=== PATIENT | male | born 1945 | race Caucasian/White ===

== ENCOUNTER 2020-02-10 06:24 | Day surgery (SDC) | payer MEDICARE, OTHER, SELFPAY ==
[2020-02-04 11:16] VITALS: BMI 33.1
[2020-02-10 07:00] VITALS: BP 113/82; PULSE 84; RESP 16; TEMP 36.1; O2SAT 96
--- NOTE | 2020-02-10 07:30 | P.CONAN_ITS ---
[facility] [place] Past Medical History Medical History Hyperlipidemia Hypothyroidism Surgical History Surgical History History of esophagogastroduodenoscopy (EGD) History of repair of pyloric stenosis Hx of colonoscopy Social History Social History Smoking Status: Unknown if ever smoked Use of substances other than those prescribed or required for medical reasons: No Advance Directives: No Advance Directives Information Provided: No Advance Directives on File: No Meds Allergies Allergy/AdvReac Type Severity Reaction Status Date / Time No Known Allergies Allergy Verified 02/10/20 06:58 Home Medications Medication Instructions Recorded Confirmed Type calcium carbonate-vitamin D3 1 tab PO BID 02/04/20 02/04/20 History [Calcium 600 + D(3)] levothyroxine 112 mcg PO DAILY 02/04/20 02/04/20 History omeprazole 20 mg PO DAILY 02/04/20 02/04/20 History simvastatin 40 mg PO BEDTIME 02/04/20 02/10/20 History Exam Exam Date and Time: February 10, 2020 0730 Height,Weight and Vital Signs: Height 5 ft 10 in Weight 104.78 kg Last Vital Signs Temp 96.9 F 02/10/20 07:00 Pulse 84 02/10/20 07:00 Resp 16 02/10/20 07:00 BP 113/82 02/10/20 07:00 Pulse Ox 96 02/10/20 07:00 Airway Mallampati Class: II TM Dist: >3cm Neck ROM: Full Loose/Missing/Broken Teeth: No Heart: [id number] Lungs: cta b/l Assessment and Plan Assessment Anesthesia Assessment: Anesthesia Plan Discussed, PAT Visit and Chart Reviewed Final Anesthetic Review NPO: Yes ASA Class: II Final Preanesthetic Review: No Changes in Pt Med Stat, Meds/Allgs Chart Reviewed, Consent Obtained/Reviewed and Anes Risks/Benef Reviewed Patient Risk: Low Procedure Risk: Low Assessment/Block/Sedation in SS: Assess/Block/Sedation-SS Anesthetic Plan Anesthetic Plan: MAC: Disposition: Standard PACU
[2020-02-10] MEDS: Lactated Ringers 1,000 ML 50 ML IVCONT (07:32)
[2020-02-10 08:36] VITALS: BP 90/43; PULSE 74; RESP 12; TEMP 36.2; O2SAT 98
--- NOTE | 2020-02-10 08:39 | PM.OP ---
Brief Operative Note Date of Service: 02/10/20 Pre-op diagnosis: Miranda's, Screening Post-op diagnosis: other (Small hiatal hernia, colon polyps) Procedure: EGD with biopsy, Colonoscopy to cecum and TI with biopsy and removal of polyps Surgeon: Austin Rcihmond Anesthesia: MAC Estimated blood loss (mL): 2.0 Pathology: other (A. EG Junction at 38cm B. Cecal polyps) Condition: stable Disposition: PACU
--- NOTE | 2020-02-10 08:46 | HO.POSTANES ---
Post Anesthesia Evaluation Post Anesthesia Evaluation Vital Signs: Vital Signs Temp Pulse Resp BP Pulse Ox 02/10/20 08:36 97.2 F 74 12 90/43 L 98 02/10/20 07:00 96.9 F 84 16 113/82 96 Anesthesia: Monitored Mental Status: Awake Pain Control: Satisfactory Nausea/Vomiting: None Hydration: Adequate Anesthesia-Related Issues: No Anes. Related Issues
[2020-02-10 08:51] VITALS: BP 91/54; PULSE 69; RESP 16; O2SAT 96
--- NOTE | 2020-02-10 08:58 | OP_ITS ---
SURGEON: Austin Richmond MD INDICATIONS: The patient presents for evaluation of chronic gastroesophageal reflux, Miranda's esophagus, personal history of tubular adenoma of the colon, and colorectal cancer screening. Full consent has been obtained from him for both procedures, including risks of bleeding and perforation. PREOPERATIVE DIAGNOSIS: POSTOPERATIVE DIAGNOSIS: PROCEDURE PERFORMED: Esophagogastroduodenoscopy with biopsies, and colonoscopy to the cecum and terminal ileum with biopsy and removal of polyps. ESTIMATED BLOOD LOSS: COMPLICATIONS: ANESTHESIA: Monitored anesthesia care. ASSISTANTS: SPECIMENS: PREOPERATIVE DIAGNOSES: Gastroesophageal reflux, Miranda's esophagus, history of tubular adenoma of the colon, colorectal cancer screening. POSTOPERATIVE DIAGNOSES: Gastroesophageal reflux, Miranda's esophagus, history of tubular adenoma of the colon, colorectal cancer screening, small hiatal hernia, small colon polyps, diverticulosis and internal hemorrhoids. DESCRIPTION OF PROCEDURE: The patient was placed in the left lateral decubitus position. The Olympus video gastroscope was passed in the posterior oropharynx and upper esophagus under direct vision. The scope was passed slowly into the distal esophagus. The gastroesophageal junction was visualized at 38 cm. There was a very minimal irregularity consistent with possible tiny area of Miranda's mucosa, but no evidence of any esophagitis nor any lesions. The scope was entered into the stomach. There was a small hiatal hernia. The scope was advanced to pylorus and duodenum cannulated the descending portion. The duodenum including the bulb appeared normal without mass or ulceration. The scope was withdrawn back into the stomach. The gastric antrum and body appeared normal with good peristalsis. The scope was retroflexed visualizing the proximal stomach carefully which appeared normal, without any sign of mass or ulceration. The scope was straightened out and withdrawn back into the esophagus. Biopsies were obtained at the EG junction at 38 cm. Proximal to this, the esophageal mucosa appeared normal. The scope was withdrawn from the patient. He was turned around for colonoscopy. The digital rectal exam revealed no abnormalities. The Olympus video pediatric colonoscope was entered into the rectum and advanced easily to the cecum. Once in the cecum, I did identify normal-appearing cecal pouch other than two 3 mm polyps in the cecum, which were each biopsied and completely removed with cold biopsy forceps. The terminal ileum was cannulated and appeared normal. The scope was withdrawn back in the colon. The ileocecal valve appeared normal. The remainder of the cecum appeared normal. The scope was slowly withdrawn assessing all mucosal surfaces carefully. Preparation was excellent. I did not visualize any other polyps, colitis, nor angiodysplasia. There was a mild amount of sigmoid diverticulosis. In the rectum, scope was retroflexed visualizing internal hemorrhoids, but no other pathology. The rectal mucosa appeared normal. Scope was straightened out and withdrawn from the patient. He tolerated the procedure well and was returned to the recovery area in stable condition. IMPRESSION: 1. Small colon polyps, status post biopsy and removal. 2. Diverticulosis. 3. Internal hemorrhoids. 4. Small hiatal hernia. 5. History of Miranda's esophagus. PLAN: The results of the biopsy will be checked. Given the minimal findings on the upper endoscopy and his age, I do not think he will need any further upper endoscopies. He will continue his omeprazole for symptomatic relief of reflux. I would recommend a repeat colonoscopy for further surveillance in 5 years depending upon his clinical status at that point. He will otherwise see me on a p.r.n. basis. MD CARO Najera/ROHITH / [phone]
[2020-02-10 09:01] VITALS: BP 104/78; PULSE 71; RESP 16; TEMP 36.2; O2SAT 95
== END 2020-02-10 09:40 | disposition home or self-care (01) ==
PROVIDERS: PCP Internal Medicine; Visit Provider Internal Medicine
PROC: (CPT 45380; principal; 2020-02-10 07:30)
DX: Z12.11 Encounter for screening for malignant neoplasm of colon (principal); Z86.010 Personal history of colon polyps; D12.0 Benign neoplasm of cecum; K57.30 Diverticulosis of large intestine without perforation or abscess without bleeding; K64.8 Other hemorrhoids; K22.70 Barrett's esophagus without dysplasia; K21.00 Gastro-esophageal reflux disease with esophagitis, without bleeding; K44.9 Diaphragmatic hernia without obstruction or gangrene; E78.5 Hyperlipidemia, unspecified; Z79.899 Other long term (current) drug therapy
CPT/HCPCS: 45380; 43239; 88305; J2370

== ENCOUNTER 2020-08-31 03:32 | Emergency (ER) | payer MEDICARE, OTHER, SELFPAY ==
[2020-08-31 04:36] VITALS: BP 154/94; PULSE 80; RESP 18; TEMP 37.1; O2SAT 96; BMI 34.5
--- NOTE | 2020-08-31 05:40 | ED_ITS ---
HPI - General Adult General Chief complaint: Upper Respiratory Symptoms Stated complaint: Congested Time Seen by Provider: 08/31/20 05:38 Source: patient Mode of arrival: ambulatory History of Present Illness HPI narrative: This is a 74-year-old male who comes in with worsening sneezing, runny nose, nasal congestion for 2 days. He denies attempting to use any useo-fnb-srivmfm Benadryl, Claritin and states that he became anxious because he could not breathe through his nose. Otherwise, he denies any sick contacts, fevers, chills, shortness of breath, chest pain/palpitations. Related Data Home Medications Medication Instructions Recorded Confirmed calcium carbonate-vitamin D3 1 tab PO BID 02/04/20 02/04/20 [Calcium 600 + D(3)] levothyroxine 112 mcg PO DAILY 02/04/20 02/04/20 omeprazole 20 mg PO DAILY 02/04/20 02/04/20 simvastatin 40 mg PO BEDTIME 02/04/20 02/10/20 Allergies Allergy/AdvReac Type Severity Reaction Status Date / Time No Known Allergies Allergy Verified 02/10/20 06:58 Review of Systems Review of Systems: Written positives and negatives as stated in HPI 10 point review of systems is otherwise negative. [facility] Past Medical History Source: nursing notes reviewed Medical History Hyperlipidemia Hypothyroidism Surgical History History of esophagogastroduodenoscopy (EGD) History of repair of pyloric stenosis Hx of colonoscopy Social History Social History Advance Directives: No Advance Directives Information Provided: No Physical Exam Vital Signs: Vital Signs: Last Vital Signs Temp 98.8 F 08/31/20 04:36 Pulse 80 08/31/20 04:36 Resp 18 08/31/20 04:36 BP 154/94 H 08/31/20 04:36 Pulse Ox 96 08/31/20 04:36 Body Mass Index 34.5 VITAL SIGNS: Reviewed. GENERAL: Well developed, well nourished, in no acute distress. HEAD: Normocephalic/atraumatic EYES: PERRLA, EOMI, clear watery from bilateral eyes EARS: Ext canals without abnormality, TMs non-bulging and non-erythematous NOSE: Boggy turbinates bilaterally, right greater than left OROPHARYNX: no oral lesions noted, posterior pharynx clear, there is cobblestoning noted NECK: Supple, no adenopathy LUNGS: Normal breath sounds. No adventitious sounds or accessory muscle use. SpO2<96> CARDIOVASCULAR: Regular rate and rhythm without noted murmurs ABDOMEN: Soft, non-tender, non-distended with bowel sounds. NEUROLOGIC: Alert and oriented x 4. Course Course Course Narrative: This is a 74-year-old male with history and clinical prese ntation consistent with seasonal allergies with classic allergic rhinitis and cobblestoning in the posterior pharynx. On review of COVID-19 testing it is negative and patient was provided with initial dose of Benadryl and discharged home in stable condition with instructions to use ochq-jnk-sqzjzuh Claritin and Flonase for control over his seasonal allergies as these are non drowsy formulations. Medical Decision Making Lab Data Labs: Lab Results 08/31/20 Range/Units 05:36 COVID-19 (ADAMARIS) Negative (Negative) COVID-19 Clin Com See Note Discharge Plan Discharge Clinical Impression: Acute seasonal allergic rhinitis Patient Disposition: Home, Self-Care Instructions: Allergic Rhinitis (ED), Loratadine (By mouth), Fluticasone (Into the nose) Additional Instructions: Resume all home medications as prescribed. Recommend starting Claritin (loratadine) in conjunction with Flonase for control over your seasonal allergies and nasal congestion. Both of these medications are available cplu-[id number]. Follow-up with your primary care provider in the next 1-2 days for re- evaluation. Return to the ER for any worsening of your symptoms. Prescriptions: No Action simvastatin 40 mg Tablet 40 mg PO BEDTIME RF: 0 omeprazole 20 mg Capsule,Delayed Release(Dr/Ec) 20 mg PO DAILY RF: 0 levothyroxine 112 mcg Tablet 112 mcg PO DAILY RF: 0 calcium carbonate-vitamin D3 [Calcium 600 + D(3)] 600 mg(1,500mg) -400 unit Tablet 1 tab PO BID RF: 0
[2020-08-31] MEDS: diphenhydrAMINE HCL 25 MG TABLET PO (05:55)
[2020-08-31 05:57] LABS: COVID-19 Test Negative (Negative)
== END 2020-08-31 06:13 | disposition home or self-care (01) ==
PROVIDERS: Emergency Provider Student in an Organized Health Care Education/Training Program; PCP Internal Medicine
DX: J30.2 Other seasonal allergic rhinitis (principal); Z20.822 Contact with and (suspected) exposure to COVID-19
CPT/HCPCS: 36415; 87635; 99283; Q0163

== ENCOUNTER 2023-08-28 15:59 | Outpatient (AMB) | payer MEDICARE, OTHER, SELFPAY ==
[2023-08-28 16:08] VITALS: BP 140/80; PULSE 76; TEMP 36.8; O2SAT 98; BMI 34.3
--- NOTE | 2023-08-28 16:08 | AM.OFFWIN_ITS ---
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 patient states he thinks he had tdap about [address] 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 While working in the shed, a screw pierced thru the skin of his right hand. Minimal bleeding. PFSH Medical History Hyperlipidemia Hypothyroidism Surgical History History of esophagogastroduodenoscopy (EGD) History of repair of pyloric stenosis Hx of colonoscopy Social History Patient Tobacco Use Status: Never used Tobacco Physical Exam Vital Signs: Last Vital Signs Temp 98.3 F 08/28/23 16:08 Pulse 76 08/28/23 16:08 BP 140/80 H 08/28/23 16:08 Pulse Ox 98 08/28/23 16:08 Oxygen Delivery Method Room Air 08/28/23 16:08 BMI result Body Mass Index 34.3 Extrem Other: Hand: puncture wound in the center of the hand. Surrounding area is mildly tender, No discharge Assessment & Plan Assessment & Plan (1) Puncture wound of hand, right: Code(s): S61.431A - Puncture wound without foreign body of right hand, initial encounter Plan: Wound was cleaned with betadine and peroxide. He is uptodate on tetanus immunization. Cephalexin and meloxicam called in. Keep hand elevated. Medications: New cephalexin 500 mg PO BID 14 caps 0RF meloxicam 15 mg PO DAILY 14 tabs 0RF Coding Level of Care Code New Pt Level 3 (07651) Diagnoses Puncture wound of hand, right S06.298D
== END 2023-08-28 16:34 | disposition home or self-care (01) ==
PROVIDERS: PCP Internal Medicine; Visit Provider Internal Medicine
DX: S61.431A Puncture wound without foreign body of right hand, initial encounter (principal)
CPT/HCPCS: 99203

== ENCOUNTER 2023-09-14 08:51 | Outpatient (AMB) | payer MEDICARE, OTHER, SELFPAY ==
[2023-09-14 09:19] VITALS: BP 118/78; PULSE 73; TEMP 36.1; O2SAT 99; BMI 34.4
--- NOTE | 2023-09-14 09:19 | AM.OFFWIN_ITS ---
Intake Vital Signs 09/14/23 09:19 Height 5 ft 9 in Weight 233 lb BMI 34.4 BP 118/78 Blood Pressure Location Lt brachial Position Sitting Pulse 73 Pulse Source Pulse Oximeter Temp 97.0 F Temp Source Temporal Artery Scan Pulse Oximetry (%) 99 Oxygen Delivery Method Room Air Intake Visit Reasons: EP ? FB in left eye Intake Note: pt is here today for lft eye red started yesterday Patient Tobacco Use Status: Never used Tobacco Allergies No Known Allergies Allergy (Verified 09/14/23 09:26) Do you need a note to return to daycare/school/sports/work: No HPI HPI Comments History of Present Illness Details Patient is a 77-year-old male who states he went to the eye doctor yesterday and then when he got home last night, he was just sitting inside of his house when it felt like something went into his eye and has been irritating it ever since. He tried to wash it out but it has not working. He did not see anything fly into his eye. He does not have any visual changes but states it is irritating. PFSH Medical History Hyperlipidemia Hypothyroidism Surgical History History of esophagogastroduodenoscopy (EGD) History of repair of pyloric stenosis Hx of colonoscopy Social History Patient Tobacco Use Status: Never used Tobacco Review of Systems Const All systems reviewed & are unremarkable except as noted in HPI and below Physical Exam Vital Signs: Last Vital Signs Temp 97.0 F 09/14/23 09:19 Pulse 73 09/14/23 09:19 BP 118/78 09/14/23 09:19 Pulse Ox 99 09/14/23 09:19 Oxygen Delivery Method Room Air 09/14/23 09:19 BMI result Body Mass Index 34.4 Const General: cooperative, healthy appearing, comfortable, no acute distress and well developed Orientation/consciousness: patient oriented x3 Limitations: no limitations HEENT Head: Yes normal to inspection Ears: external ears normal General nose exam: Normal external nose present Face and sinus: Yes normal facial exam Eyes Eyelids: Yes eyelid abnormality (hordeolum at 10'oclock up internal upper left eyelid) Conjunctivae: conjunctival abnormal left conjunctival injection diffuse Corneas: fluorescein used (Corneal abrasion noted across pupil of left eye from 3o'clock to 9 o'clock) Pupils: Equal, round and reactive pupils present EOM: EOMs intact bilaterally Resp Effort & Inspection: normal respiratory effort and able to speak in complete sentences Neuro General: patient oriented x3 Cranial nerves: Yes Equal, round and reactive pupils present Office Procedures Fluorescein eye exam Details: numbed left eye with 2 tetracaine drops, applied dye and examined under fluorescein light, corneal abrasion of left eye noted, from the 3 o'clock position to the 9 o'clock position Assessment & Plan Assessment & Plan (1) Corneal abrasion, left: Code(s): S05.02XA - Injury of conjunctiva and corneal abrasion without foreign body, left eye, initial encounter Qualifiers: Encounter type: initial encounter Qualified Code(s): S05.02XA - Injury of conjunctiva and corneal abrasion without foreign body, left eye, initial encounter Plan: After numbing the eye and using the fluorescein, we flushed the eye thoroughly at the eye wash station. Follow-up with her bar host/hostess as scheduled this afternoon, we will send erythromycin to pharmacy Plan see above Medications: New erythromycin Apply 1cm ribbon to inner lower left eyelid 0.5 inches ophthalmic (eye) QID 3.5 grams 0RF Coding Level of Care Code Est Pt Level 4 (17807) Diagnoses Abrasion of left cornea, initial encounter S05.02XA Encounter type: initial encounter
== END 2023-09-14 10:09 | disposition home or self-care (01) ==
PROVIDERS: PCP Internal Medicine; Visit Provider Physician Assistant
DX: S05.02XA Injury of conjunctiva and corneal abrasion without foreign body, left eye, initial encounter (principal)
CPT/HCPCS: 99214

== ENCOUNTER 2023-10-12 10:34 | Outpatient (AMB) | payer MEDICARE, OTHER, SELFPAY ==
--- NOTE | 2023-10-12 10:41 | AM.OFFWIN_ITS ---
Intake Vital Signs 10/12/23 10:42 Height 5 ft 9 in Weight 231 lb BMI 34.1 BP 132/84 Blood Pressure Location Lt brachial Position Sitting Pulse 65 Pulse Source Pulse Oximeter Temp 97.6 F Temp Source Oral Pulse Oximetry (%) 97 Oxygen Delivery Method Room Air Intake Visit Reasons: EP, RT ear infection Intake Note: pt here c/o RT ear pain. Started 3-4 weeks ago. ? infection Patient Tobacco Use Status: Never used Tobacco Allergies No Known Allergies Allergy (Verified 10/12/23 10:42) Do you need a note to return to daycare/school/sports/work: No HPI EP, RT ear infection HPI Details This note is constructed using voice recognition software. While every effort has been made to ensure accuracy, pastoral worker errors may have been included. The patient is a 78 year old male who presents to the clinic today with 3-4 weeks of right-sided ear pain. He notes that since this has started he has had significant loss in hearing, approximately 80% compared to his normal. He does not wear hearing aids. He does use Q-tips regularly to clean his ears, and has noted that he has been getting a yellow discharge from his ear. No fever or chills. PFSH Medical History Hyperlipidemia Hypothyroidism Surgical History History of esophagogastroduodenoscopy (EGD) History of repair of pyloric stenosis Hx of colonoscopy Social History Patient Tobacco Use Status: Never used Tobacco Review of Systems Const All systems reviewed & are unremarkable except as noted in HPI and below Physical Exam Vital Signs: Last Vital Signs Temp 97.6 F 10/12/23 10:42 Pulse 65 10/12/23 10:42 BP 132/84 10/12/23 10:42 Pulse Ox 97 10/12/23 10:42 Oxygen Delivery Method Room Air 10/12/23 10:42 BMI result Body Mass Index 34.1 Const General: cooperative, healthy appearing, comfortable, no acute distress and aler t Orientation/consciousness: patient oriented x3 Limitations: no limitations HEENT Head: Yes normal to inspection and Yes normocephalic Ears: TM normal on the left and TM abnormal erythematous on the right and perforated with purulent discharge (in canal) General nose exam: Normal external nose present Face and sinus: Yes normal facial exam and Yes sinuses nontender Mouth: Normal oral and palatal mucosa present and tongue normal Teeth and gingiva: dentition normal Throat: Yes posterior oropharynx normal Eyes General: appearance normal, both eyes and all related structures Skin General skin exam: no rashes or lesions noted, elasticity normal and turgor n ormal Neuro General: patient oriented x3 Psych Appearance: grossly normal Mental Status: mental status grossly normal Speech and movement: Normal speech and movement present Affect: normal affect Assessment & Plan Assessment & Plan (1) Acute otitis media of right ear with perforation: Code(s): H66.91 - Otitis media, unspecified, right ear; H72.91 - Unspecified perforation of tympanic membrane, right ear Plan: Antimicrobial therapy prescribed. Advised taking until completed. Advised avoidance of use of Q-tips in the ear. Advised avoidance of water in the ear canal, including use of cotton ball when showering. Reviewed timeline until hearing should return typically 3-4 weeks. Advised follow up with PCP with failure for hearing to resolve. Plan See above for full details and plan. Medications: New amoxicillin-pot clavulanate 875-125 mg 1 tab PO BID 10 days 20 tabs 0RF Coding Level of Care Code Est Pt Level 3 (39424) Diagnoses Acute otitis media of right ear with perforation H66.91; H72.91
[2023-10-12 10:42] VITALS: BP 132/84; PULSE 65; TEMP 36.4; O2SAT 97; BMI 34.1
== END 2023-10-12 12:02 | disposition home or self-care (01) ==
PROVIDERS: PCP Internal Medicine; Visit Provider Registered Nurse
DX: H66.91 Otitis media, unspecified, right ear (principal); H72.91 Unspecified perforation of tympanic membrane, right ear
CPT/HCPCS: 99213

== ENCOUNTER 2023-11-21 10:13 | Outpatient (AMB) | payer MEDICARE, OTHER, SELFPAY ==
--- NOTE | 2023-11-21 10:13 | MHC.OFFWIV ---
Intake Vital Signs 11/21/23 10:15 Height 5 ft 9 in Weight 232 lb BMI 34.3 BP 140/80 H Blood Pressure Location Lt brachial Position Sitting Pulse 82 Pulse Source Pulse Oximeter Pulse Oximetry (%) 94 Oxygen Delivery Method Room Air Intake Visit Reasons: EP Right ear still bothering him Intake Note: Patient here for right ear still bothersome, he scheduled an appt for first week of nov and then was cancelled and advised to come here. Patient Tobacco Use Status: Never used Tobacco Allergies No Known Allergies Allergy (Verified 11/21/23 10:19) Do you need a note to return to daycare/school/sports/work: No HPI HPI Comments History of Present Illness Details Patient is a 78-year-old male who was seen in this clinic on October 11, diagnosed with a right ear infection, given Augmentin which he took in fall but he is now stating that helped improve his hearing loss about 60% but he still has some residual hearing loss. he statees when he takes his finger and rubs it on his outer ear, it actually improves his hearing. He states he does not really have pain, he has more of an uncomfortableness. He denies any fevers. He does state he has some malodorous discharge from the ear at times. PFSH Medical History Hyperlipidemia Hypothyroidism Surgical History History of esophagogastroduodenoscopy (EGD) History of repair of pyloric stenosis Hx of colonoscopy Social History Patient Tobacco Use Status: Never used Tobacco Review of Systems Const All systems reviewed & are unremarkable except as noted in HPI and below Physical Exam Vital Signs: Last Vital Signs Pulse 82 11/21/23 10:15 BP 140/80 H 11/21/23 10:15 Pulse Ox 94 11/21/23 10:15 Oxygen Delivery Method Room Air 11/21/23 10:15 BMI result Body Mass Index 34.3 Const General: cooperative, healthy appearing, comfortable and no acute distress Orientation/consciousness: patient oriented x3 HEENT Head: Yes normal to inspection, Yes No palpable skull fracture present and Yes normocephalic Ears: hearing grossly normal bilaterally, external ears normal, TM's normal bilaterally, mastoids normal (no TTP) bilaterally, Abnormal EAC present (right side) erythema and edema, hearing grossly impaired and no periauricular adenopathy General nose exam: Normal external nose present Face and sinus: Yes normal facial exam Mouth: Normal oral and palatal mucosa present Teeth and gingiva: dentition normal Throat: Yes posterior oropharynx normal Eyes General: appearance normal, both eyes and all related structures Neck Neck: Yes normal visual inspection, Yes full ROM, Yes no lymphadenopathy, Yes no meningeal signs, Yes trachea midline and Yes supple Resp Effort & Inspection: normal respiratory effort and able to speak in complete sentences Skin General skin exam: no rashes or lesions noted Neuro General: patient oriented x3 and no meningeal signs Assessment & Plan Assessment & Plan (1) Otitis externa: Code(s): H60.90 - Unspecified otitis externa, unspecified ear Qualifiers: Otitis externa type: unspecified type Chronicity: acute Laterality: right Qualified Code(s): H60.501 - Unspecified acute noninfective otitis externa, right ear Plan: Recommended he use the eardrops as well as Flonase and call his doctor to get a referral to see an ENT doctor as hearing loss to this degree is not normal and he needs a further workup. Patient understands and agrees with the plan. Dr. Lowe also examined the patient's right ears I had difficulty seeing the Right side tympanic membrane initially. Plan See above Medications: New fqtkspap-ydhagmtvv-SP 3.5-10,000-1 mg/mL-unit/mL-% 4 drps otic (ear) right Q8H 10 mL 0RF 7 days Coding Level of Care Code New Pt Level 3 (36961) Diagnoses Acute otitis externa of right ear, unspecified type H60.501 Otitis externa type: unspecified type Chronicity: acute Laterality: right
[2023-11-21 10:15] VITALS: BP 140/80; PULSE 82; O2SAT 94; BMI 34.3
== END 2023-11-21 10:44 | disposition home or self-care (01) ==
PROVIDERS: PCP Internal Medicine; Visit Provider Physician Assistant
DX: H60.501 Unspecified acute noninfective otitis externa, right ear (principal)
CPT/HCPCS: 99213

== ENCOUNTER 2024-12-16 11:16 | Outpatient (REF) | payer MEDICARE, OTHER, SELFPAY ==
[2024-12-16 11:43] VITALS: BP 162/85; PULSE 61; RESP 16; O2SAT 95
--- OUTSIDE RECORDS SUMMARY | 2024-12-16 13:56 | XMS_ITS | Patient Health Record ---
Author Organization [facility] Address [address] [place] [address] Care Team Providers Care Publicity Consultant Name Role Phone Pipe Driscoll MD Primary Care Provider Austin Davis [phone] Allergies No Known Allergies Reason For Referral No Information Medications Medication SIG (Take, Route, Frequency, Duration) Notes Start Date End Date Status Triamterene-HCTZ 37.5-25 MG 1 tablet in the morning Orally twice a day Not-Taking Omeprazole 20 MG TAKE 1 CAPSULE BY MOUTH EVERY DAY for 90 Active Calcium 600+D 600-400 MG-UNIT 1 tablet with food Orally Twice a day Active Levothyroxine Sodium 112 MCG 1 tablet Orally Once a day Active Atorvastatin Calcium 40 MG 1 tablet Oral ly Once a day Active Immunizations Vaccine Route Administration Date Status Comme nts Flu vaccine no Preserv 3 and > Unknown 11/26/2014 Admin istered Pneumococcal Unknown 11/25/2014 Administered Influenza Unknown 11/28/2018 Administered Influenza Unknown 09/11/2024 Refused Problems Problem Type SNOMED Code ICD Code Onset Dates Problem Status W/U Status Risk Notes Problem 096925950 Encounter for screening for malignant neoplasm of colon (Z12.11) Active confirmed Problem 22787387 Other dysphagia (R13.19) Active confirmed Problem 327923379 Barretts esophagus without dysplasia (K22.70) Active confirmed Problem 011720264 Hx of adenomatous colonic polyps (Z86.010) Active confirmed Vital Signs Temperature 96.9 degrees Fahrenheit 09/11/2024 Blood pressure diastolic 01 mm Hg 09/11/2024 Height 70 in 09/11/2024 Blood pressure systolic 001 mm Hg 09/11/2024 Weight 235 lbs 09/11/2024 BMI 33.72 kg/m2 09/11/2024 Procedures Procedure Date Ordered Date Performed Result Body Sit e COLONOSCOPY 09/11/2024 N/A Encounters Encounter Location Date Provider Diagnosis [facility] [address] [place] [address] 09/11/2024 Austin Richmond Barretts esophagus without dysplasia K22.70 ; Hx of adenomatous colonic polyps Z86.010 ; Other dysphagia R13.19 and Encounter for screening for malignant neoplasm of colon Z12.11 Assessments Encounter Date Diagnosis (ICD Code) Assessment Notes Treatment Notes Treatment Clinical Notes Section Notes 09/11/2024 Barretts esophagus without dysplasia (ICD-10 - K22.70) You can try to come off the omeprazole but you shoiud resume it daily if your swallowing worsens without it. Overall, [place] appears well. He is not having any new or worrisome GI complaints. We did review the findings on his upper endoscopy from 2019 and I advised him that at this point given the minimal findings of the Miranda's esophagus and his age I do not think a follow-up surveillance endoscopy is required in regard to the Miranda's esophagus. I did advise him that he could certainly continue his daily omeprazole or if he wants to he could try to come off of it and see how he does without it. I suspect esophageal spasm from esophageal reflux was probably the main culprit causing his swallowing issues in the past. I did advise him that if the dysphagia worsens without the omeprazole he should certainly resume it on a daily basis. I did recommend a follow-up colonoscopy for further screening given his history of polyps in the past and his last colonoscopy approaching the 5-year yohan. We did review the rationale for that in regard to colon cancer prevention. Full consent has been obtained for that, including risks of bleeding and perforation. The procedure will be done with monitored anesthesia care. [place] was comfortable with this plan. Thank you again for allowing me to participate in [place]'s care. I shall continue to keep you advised of his progress. 09/11/2024 Hx of adenomatous colonic polyps (ICD-10 - Z86.010) Overall, [place] appears well. He is not having any new or worrisome GI complaints. We did review the findings on his upper endoscopy from 2019 and I advised him that at this point given the minimal findings of the Miranda's esophagus and his age I do not think a follow-up surveillance endoscopy is required in regard to the Miranda's esophagus. I did advise him that he could certainly continue his daily omeprazole or if he wants to he could try to come off of it and see how he does without it. I suspect esophageal spasm from esophageal reflux was probably the main culprit causing his swallowing issues in the past. I did advise him that if the dysphagia worsens without the omeprazole he should certainly resume it on a daily basis. I did recommend a follow-up colonoscopy for further screening given his history of polyps in the past and his last colonoscopy approaching the 5-year yohan. We did review the rationale for that in regard to colon cancer prevention. Full consent has been obtained for that, including risks of bleeding and perforation. The procedure will be done with monitored anesthesia care. [place] was comfortable with this plan. Thank you again for allowing me to participate in [place]'s care. I shall continue to keep you advised of his progress. 09/11/2024 Other dysphagia (ICD-10 - R13.19) Overall, [place] appears well. He is not having any new or worrisome GI complaints. We did review the findings on his upper endoscopy from 2019 and I advised him that at this point given the minimal findings of the Miranda's esophagus and his age I do not think a follow-up surveillance endoscopy is required in regard to the Miranda's esophagus. I did advise him that he could certainly continue his daily omeprazole or if he wants to he could try to come off of it and see how he does without it. I suspect esophageal spasm from esophageal reflux was probably the main culprit causing his swallowing issues in the past. I did advise him that if the dysphagia worsens without the omeprazole he should certainly resume it on a daily basis. I did recommend a follow-up colonoscopy for further screening given his history of polyps in the past and his last colonoscopy approaching the 5-year yohan. We did review the rationale for that in regard to colon cancer prevention. Full consent has been obtained for that, including risks of bleeding and perforation. The procedure will be done with monitored anesthesia care. [place] was comfortable with this plan. Thank you again for allowing me to participate in [place]'s care. I shall continue to keep you advised of his progress. 09/11/2024 Encounter for screening for malignant neoplasm of colon (ICD-10 - Z12.11) Overall, [place] appears well. He is not having any new or worrisome GI complaints. We did review the findings on his upper endoscopy from 2019 and I advised him that at this point given the minimal findings of the Miranda's esophagus and his age I do not think a follow-up surveillance endoscopy is required in regard to the Miranda's esophagus. I did advise him that he could certainly continue his daily omeprazole or if he wants to he could try to come off of it and see how he does without it. I suspect esophageal spasm from esophageal reflux was probably the main culprit causing his swallowing issues in the past. I did advise him that if the dysphagia worsens without the omeprazole he should certainly resume it on a daily basis. I did recommend a follow-up colonoscopy for further screening given his history of polyps in the past and his last colonoscopy approaching the 5-year yohan. We did review the rationale for that in regard to colon cancer prevention. Full consent has been obtained for that, including risks of bleeding and perforation. The procedure will be done with monitored anesthesia care. [place] was comfortable with this plan. Thank you again for allowing me to participate in [place]'s care. I shall continue to keep you advised of his progress. Plan Of Treatment Pending Test Test Name Order Date COLONOSCOPY 09/11/2024 Future Test Test Name Order Date UPPER GI ENDOSCOPY BALLOOON DILATION OF ESOPH 09/12/2014 COLONOSCOPY 09/12/2014 UPPER GI ENDOSCOPY 12/17/2019 COLONOSCOPY 12/17/2019 Next Appt Details Provider Name:Austin Griffiths Yi , 02/14/2025 11:00:00 AM, [address] [place] [address] , [place], [place], [phone], Insurance Providers Payer Name Payer Address Payer Phone Subscriber Number Group Number Insured Name Patient Relationship to Insured Coverage Start Date Coverage End Date MEDICARE OF [place] [address] [facility] [place] [id number] WALDO DEUTSCH Self - patient is the insured [employer] ([employer]) [address] [place] [address] [id number] WALDO DEUTSCH Self - patient is the insured Medical (General) History Medical History History ICD Code Denies [place],DM,CVA,Lung disease,renal dise ase EGD with Balloon dilation 2006-distal es ophageal stricture-Dr. Arrieta Neg. colonoscopy in 2003, other than toma e diverticulosis-Dr. Arrieta Hypothyroidism Hyperlipidemia EGD with Balloon in 11/2014-- small HH, small area of Miranda's without dysplasia--EGJ dilated with an 18/19/20mm balloon, although there was no definitive esophageal ring noted Colonoscopy in 11/2014--1 sma ll tubular adenoma, moderate sigmoid diverticulosis Colonoscopy in January 2020 revealed a small sessile serrated polyp and a small tubular adenoma in the cecum, both of which were removed. Upper endoscopy in January 2020 revealed a small hiatal hernia and minimal area of Miranda's esophagus. There was no esophagitis and all biopsies were negative for dysplasia within the Miranda's mucosa. There was no esophageal stricture nor esophageal ring. Surgical History Surgery Date(Month/Year) Perianal surgery with Dr. Coleman in 05/16 14 Stomach surgery due to pyloric stenosis as an
== END 2024-12-16 11:17 | disposition home or self-care (01) ==
LOC: HO.MS 11:16
PROVIDERS: PCP Internal Medicine; Visit Provider Ophthalmology
PROC: (CPT 66761; principal; 2024-12-16 14:30)
DX: H40.031 Anatomical narrow angle, right eye (principal)
CPT/HCPCS: 66761

== ENCOUNTER 2024-12-23 09:03 | Outpatient (REF) | payer MEDICARE, OTHER, SELFPAY ==
[2024-12-23 09:25] VITALS: BP 145/87; PULSE 95; RESP 16; TEMP 36.3; O2SAT 95; BMI 33.6
--- OUTSIDE RECORDS SUMMARY | 2024-12-23 09:38 | XMS_ITS | Patient Health Record ---
Author Organization [facility] Address [address] [place] [address] Care Team Providers Care Assessment Expert Name Role Phone Pipe Driscoll MD Primary Care Provider Austin Davis [phone] Allergies No Known Allergies Reason For Referral [...] Problem Status W/U Status Risk Notes Problem [id number] Encounter for screening for malignant neoplasm of colon (Z12.11) Active confirmed Problem 76143166 Other dysphagia (R13.19) Active confirmed Problem 999194917 Barretts esophagus without dysplasia (K22.70) Active confirmed Problem 130050064 Hx of adenomatous colonic polyps (Z86.010) Active confirmed Vital Signs Temperature 96.9 degrees Fahrenheit 09/11/2024 Blood pressure diastolic 01 mm Hg 09/11/2024 Height 70 in 09/11/2024 Blood pressure systolic 001 mm Hg 09/11/2024 Weight 235 lbs 09/11/2024 BMI 33.72 kg/m2 09/11/2024 Procedures Procedure Date Ordered Date Performed Result Body Sit e COLONOSCOPY 09/11/2024 N/A Encounters Encounter Location Date Provider Diagnosis [facility] [address] [place] [address] 09/11/2024 Austin Richmond Barretts esophagus without dysplasia [...] again for allowing me to participate in [place]'s care. I shall continue to keep you advised of his progress. Plan Of Treatment Pending Test Test Name Order Date COLONOSCOPY 09/11/2024 Future Test Test Name Order Date UPPER GI ENDOSCOPY BALLOOON DILATION OF ESOPH 09/12/2014 COLONOSCOPY 09/12/2014 UPPER GI ENDOSCOPY 12/17/2019 COLONOSCOPY 12/17/2019 Next Appt Details Provider Name:Austin Griffiths Yi , 02/14/2025 11:00:00 AM, [address] [place] [address] , [place], [place], [phone], Insurance Providers Payer Name Payer Address Payer Phone Subscriber Number Group Number Insured Name Patient Relationship to Insured Coverage Start Date Coverage End Date MEDICARE OF [place] [address] [facility] [place] [id number] [phone] [id number] WALDO DEUTSCH Self - patient is the insured [employer] ([employer]) [address] [place] [address] [phone] [id number] WALDO DEUTSCH Self - patient is the insured Medical (General) History Medical History History ICD Code Denies [place],DM,CVA,Lung disease,renal dise ase EGD with Balloon dilation [...]
== END 2024-12-23 09:04 | disposition home or self-care (01) ==
LOC: HO.MS 09:03
PROVIDERS: PCP Internal Medicine; Visit Provider Ophthalmology
PROC: (CPT 66761; principal; 2024-12-23 10:30)
DX: H40.032 Anatomical narrow angle, left eye (principal)
CPT/HCPCS: 66761